=== PATIENT | female | born 1930 | race Caucasian/White ===

== ENCOUNTER → 2016-12-03 16:59 | Outpatient (CLI) | payer MEDICARE ==
[2013-02-17 06:09] VITALS: BMI 20.9
[~2016-12-03 16:59] MED LIST: ATIVAN0.5 MG PO; BAYER ASPIRIN325 MG PO; CALCIUM 600+D T1 TA1 PO; DYAZIDE 37.5/251 CAP PO; FOSAMAX 70 MG T70 MG PO; PRAVACHOL20 MG PO; TOPROL XL50 MG PO; VITAMIN B-121000 MC3 PO; [UNRECOGNIZED DRUG - OTHER] OR
== END | disposition home or self-care (01) ==
LOC: D.MAMMO 11:15
DX: Z12.31 Encounter for screening mammogram for malignant neoplasm of breast (principal)

== ENCOUNTER 2017-04-14 08:39 | Emergency (ER) | payer MEDICARE ==
[2013-02-17 06:09] VITALS: BMI 20.9
[2017-04-14 09:25] LABS: BASOPHILS 0.1 % (0-2); EOSINOPHILS 0 % (0-7); HEMATOCRIT 39.4 % (36.0-48.0); HEMOGLOBIN 12.9 g/dL (12-16); IMMATURE GRANULOCYTES 0.2 % (0-5); LYMPHOCYTES 19.6 % (15-50); MCH 30.1 pg (26.0-34.0); MCHC 32.7 g/dL (31.0-37.0); MCV 91.8 fL (80.0-100.0); MEAN PLATELET VOLUME 8.9 fL (7.4-10.4); NEUTROPHILS 75.1 % (40-80); RBC 4.29 10x6/uL (4.00-5.40); RDW 14.2 % (11.5-14.5); WBC 8.9 10x3/uL (4.8-10.8)
[2017-04-14 09:26] LABS: PLATELET COUNT 262 10x3/uL (130-400)
[2017-04-14 09:26] LABS: APPEARANCE CLEAR (CLEAR); COLOR YELLOW (YELLOW); GLUCOSE NEGATIVE (NEGATIVE); KETONE SMALL mg/dL (NEGATIVE); NITRITE NEGATIVE (NEGATIVE); PROTEIN NEGATIVE (NEGATIVE); SPECIFIC GRAVITY 1.015 (1.005-1.020)
[2017-04-14 09:27] LABS: BILIRUBIN NEGATIVE (NEGATIVE); UROBILINOGEN NORMAL (NORMAL)
[2017-04-14 09:37] LABS: BACTERIA FEW /hpf (NONE SEEN); EPITHELIAL CELLS OCC /hpf (0-5); RED CELLS - URINE 0-5 /hpf (0-5); WHITE CELLS - URINE OCC /hpf (0-5)
[2017-04-14 09:40] LABS: ALBUMIN 4.3 g/dL (3.4-5.0); ANION GAP 15.1 mmol/L (8-16); BILIRUBIN - TOTAL 0.4 mg/dL (0.2-1.3); CALCIUM 9.2 mg/dL (8.5-10.1); CARBON DIOXIDE 24.6 mmol/L (21.0-32.0); CREATININE - SERUM 0.8 mg/dL (0.6-1.3); POTASSIUM - SERUM 3.7 mmol/L (3.5-5.1); PROTEIN - SERUM 7.9 g/dL (6.4-8.2)
[2017-04-14 09:49] LABS: THYROID STIMULATING HORMONE 0.96 uIU/mL (0.36-3.74)
== END 2017-04-14 10:21 | disposition home or self-care (01) ==
LOC: D.ER 08:39
PROVIDERS: Emergency Medicine
DX: F03.90 Unspecified dementia, unspecified severity, without behavioral disturbance, psychotic disturbance, mood disturbance, and anxiety (principal); E87.1 Hypo-osmolality and hyponatremia; I10 Essential (primary) hypertension

== ENCOUNTER 2017-05-25 14:39 | Inpatient (IN) | payer MEDICARE ==
[~2017-05-25] VITALS: Ht 180.3 cm; Wt 64.1 kg
--- NOTE | ~2017-05-25 | EC ---
PATIENT:LIT MURGUIA DATE OF SERVICE: 05/26/17 SEX: F MEDICAL RECORD: [id number] DATE OF : 30 LOCATION:[facility] AGE OF PATIENT: 86 ADMISSION DATE: 05/26/17 REFERRING PHYSICIAN: INTERPRETING PHYSICIAN: KENNEY VALERIO MD ECHOCARDIOGRAM REPORT ECHO CHARGES 5 ECHO LIMITED DATE: CLINICAL DIAGNOSIS: TIA ECHOCARDIOGRAPHIC MEASUREMENTS (adult normal given) AC root (d.<3.7cm) cm LV Septum d (<1.2 cm> 1.6 cm Valve Excursion cm LV Septum (systole) 1.9 cm Left Atria (s.<4.0cm> 3.3 cm LVPW d(<1.2cm) 2.0 cm RV (d.<2.3cm) 2.8 cm LVPW (sytole) 2.2 cm LV diastole(<5.6CM) 3.3 cm MV E-F(>70mm/sec) cm LV systole 2.0 cm LVOT Diameter cm MV exc.(>10mm) cm Est.ejection fraction (50-75%) % DOPPLER: LVIT cm/sec A cm/sec E cm/sec LA cm/sec RVSP 21 mmHg LVOT cm/sec AOP1/2T m/s Asc. Ao cm/sec RVOT cm/sec RA cm/sec PA cm/sec AV Gradient Peak mmHg AV Mean mmHg AV Area cm MV Gradient Peak mmHg MV Mean mmHg MV Area cm COMMENTS: Cost Coordinator: Aracely GODINEZ Foreign Car Mechanic: Zuhair Valerio TAPE# PACS Pericardial Effusion N DATE OF SERVICE: 05/26/2017 PROCEDURE: Echocardiogram. FINDINGS: 1. Left ventricle chamber size is within normal limits. Left ventricular systolic function is normal. Overall ejection fraction estimated at 60%. 2. Left atrium, right atrium, and right ventricular chamber sizes are within normal limits. 3. Valvular structures have normal structure and motion. ECHOCARDIOGRAM REPORT [id number] LIT MURGUIA 4. Doppler interrogation reveals only trace tricuspid regurgitation and trace mitral regurgitation. No other valvular insufficiency or stenosis. 5. No evidence of pericardial effusion or left ventricular thrombus. TRANSINT:[id number] Voice Confirmation ID: [id number] DOCUMENT ID: [id number] KENNEY VALERIO MD at 1140 CC: [id number] DICTATION DATE: 05/27/17 1249 SKIMMER SCOOP OPERATOR: 05/27/17 1259 DIS IN 05/29/17 [facility] [address] [id number]
--- NOTE | ~2017-05-25 | CN ---
PATIENT NAME:LIT MURGUIA MEDICAL RECORD: [id number] : 30 LOCATION:[id number] ADMIT DATE: 05/26/17 ACCOUNT: [id number] CONSULTING PHYSICIAN: MELVIN CAMPBELL MD REFERRING PHYSICIAN: PETRONA SMITH MD DATE OF CONSULTATION: 05/27/2017 PSYCHIATRIC CONSULTATION IDENTIFYING DATA: The patient is 86 years old and she is currently in the hospital secondary to a transient ischemic attack. CHIEF COMPLAINT: Agitation. HISTORY OF PRESENT ILLNESS: The patient clearly has a dementia. Apparently, it has become more exacerbated with this hospitalization and particularly with her hospitalization in the intensive care unit. She has been significantly agitated there. She denies any thoughts of harming herself or others. She is calm when I speak with her, but the nurse caring for her today describes typical sundowning behaviors and/or behaviors consistent with an intensive care unit delirium. In talking with the patient, she does not have any mood symptoms and certainly has no conscious and overt thoughts of harming herself or others or psychotic symptoms. Her mental status exam is consistent with short-term memory loss and a concreteness that is consistent with a dementia. ASSESSMENT: Senile dementia of the Alzheimer's type. PLAN: The patient clearly has impairment and is living with her son for the past 16 years. She wants to go back and live with him. Her behaviors in and of themselves would meet criteria for an inpatient hospitalization here on the geriatric behavior unit, but she does not want to be admitted and given her circumstances I suspect that she would improve just simply by returning home with her son to a familiar setting and environment. I would recommend the use of a cholinesterase inhibitor and I will also prescribe p.r.n. medication in case she becomes agitated while hospitalized here. TRANSINT:[id number] Voice Confirmation ID: [id number] DOCUMENT ID: [id number] MELVIN CAMPBELL MD at 1445 CC: [id number] DICTATION DATE: 05/27/17 1412 MANAGER TRANSPORT: 05/27/17 1420 ADM [id number] [place] [id number]
[2017-05-25 15:07] LABS: BASOPHILS 0.2 % (0-2); EOSINOPHILS 0 % (0-7); HEMATOCRIT 32.8 % (36.0-48.0); HEMOGLOBIN 10.5 g/dL (12-16); IMMATURE GRANULOCYTES 0.6 % (0-5); LYMPHOCYTES 15.2 % (15-50); MCH 29.9 pg (26.0-34.0); MCV 93.4 fL (80.0-100.0); MEAN PLATELET VOLUME 9.3 fL (7.4-10.4); MONOCYTES 4.1 % (2-11); NEUTROPHILS 79.9 % (40-80); PLATELET COUNT 232 10x3/uL (130-400); RBC 3.51 10x6/uL (4.00-5.40); RDW 15.2 % (11.5-14.5); WBC 12.6 10x3/uL (4.8-10.8)
[2017-05-25 15:21] LABS: APTT 23.6 SECONDS (22.8-39.4); INR 1.07 (0.85-1.17); PROTIME 13.5 SECONDS (11.6-15.0)
[2017-05-25 15:29] LABS: ALBUMIN 3.4 g/dL (3.4-5.0); ANION GAP 14.6 mmol/L (8-16); BILIRUBIN - TOTAL 0.47 mg/dL (0.2-1.3); CALCIUM 10.6 mg/dL (8.5-10.1); CARBON DIOXIDE 27.8 mmol/L (21.0-32.0); CREATININE - SERUM 1.2 mg/dL (0.6-1.3); POTASSIUM - SERUM 4.4 mmol/L (3.5-5.1); PROTEIN - SERUM 6.6 g/dL (6.4-8.2)
[2017-05-26] VITALS (21 sets, daily range): BP systolic 97–129; BP diastolic 44–68; BMI 18.7
[2017-05-26 06:45] LABS: BASOPHILS 0.2 % (0-2); EOSINOPHILS 0.2 % (0-7); HEMATOCRIT 28.3 % (36.0-48.0); HEMOGLOBIN 9.2 g/dL (12-16); IMMATURE GRANULOCYTES 0.3 % (0-5); LYMPHOCYTES 28.1 % (15-50); MCH 29.8 pg (26.0-34.0); MCHC 32.5 g/dL (31.0-37.0); MCV 91.6 fL (80.0-100.0); MONOCYTES 9.6 % (2-11); NEUTROPHILS 61.6 % (40-80); PLATELET COUNT 200 10x3/uL (130-400); RBC 3.09 10x6/uL (4.00-5.40); RDW 15.4 % (11.5-14.5); WBC 11.8 10x3/uL (4.8-10.8)
[2017-05-26 06:54] LABS: APTT 25.8 SECONDS (22.8-39.4); INR 1.04 (0.85-1.17); PROTIME 13.2 SECONDS (11.6-15.0)
[2017-05-26 07:01] LABS: ANION GAP 12.8 mmol/L (8-16); CALCIUM 9.9 mg/dL (8.5-10.1); CARBON DIOXIDE 27.6 mmol/L (21.0-32.0); CREATININE - SERUM 1.1 mg/dL (0.6-1.3); POTASSIUM - SERUM 4.4 mmol/L (3.5-5.1)
[2017-05-26] MEDS ORDERED: ATIVAN0.5 MG PO ×3 (12:15→12:17)
[2017-05-26] MEDS ORDERED: PRINIVIL10 MG PO (12:19)
[2017-05-26 12:20] LABS: HEMATOCRIT 25.9 % (36.0-48.0); HEMOGLOBIN 8.4 g/dL (12-16)
[2017-05-26] MEDS ORDERED: MOBIC7.5 MG PO (12:20)
[2017-05-26] MEDS ORDERED: OMEGA 3 FISH OI1 CAP PO (12:22)
[2017-05-26] MEDS ORDERED: PROLIA INJ 660 MG/M1 IJ (12:23)
[2017-05-26] MEDS ORDERED: ACETAMINOP160 MG/5 M PO (12:42)
[2017-05-26 15:21] LABS: HELICOBACTER PYLORI IGG NEGATIVE (NEGATIVE)
[2017-05-26 17:59] LABS: HEMATOCRIT 27.9 % (36.0-48.0)
[2017-05-27] VITALS (22 sets, daily range): BP systolic 101–155; BP diastolic 43–96; Ht 180.3 cm; Wt 64.1 kg
[2017-05-27 01:23] LABS: HEMOGLOBIN 7.1 g/dL (12-16)
[2017-05-27 20:28] LABS: HEMATOCRIT 31.1 % (36.0-48.0); HEMOGLOBIN 10.3 g/dL (12-16)
[2017-05-28] VITALS (14 sets, daily range): BP systolic 118–173; BP diastolic 57–110
[2017-05-28 01:05] LABS: HEMATOCRIT 31.9 % (36.0-48.0); HEMOGLOBIN 10.7 g/dL (12-16)
[2017-05-28 05:07] LABS: BASOPHILS 0.2 % (0-2); EOSINOPHILS 0.1 % (0-7); HEMATOCRIT 32.4 % (36.0-48.0); HEMOGLOBIN 10.7 g/dL (12-16); IMMATURE GRANULOCYTES 0.8 % (0-5); LYMPHOCYTES 21.1 % (15-50); MCH 29.9 pg (26.0-34.0); MCV 90.5 fL (80.0-100.0); MEAN PLATELET VOLUME 9.3 fL (7.4-10.4); MONOCYTES 9.1 % (2-11); NEUTROPHILS 68.7 % (40-80); PLATELET COUNT 173 10x3/uL (130-400); RBC 3.58 10x6/uL (4.00-5.40); RDW 15.9 % (11.5-14.5); WBC 10.4 10x3/uL (4.8-10.8)
[2017-05-28 07:15] LABS: ALBUMIN 3.5 g/dL (3.4-5.0); ANION GAP 14.6 mmol/L (8-16); BILIRUBIN - TOTAL 0.8 mg/dL (0.2-1.3); CALCIUM 8.1 mg/dL (8.5-10.1); CREATININE - SERUM 0.8 mg/dL (0.6-1.3); POTASSIUM - SERUM 3.6 mmol/L (3.5-5.1); PROTEIN - SERUM 6.4 g/dL (6.4-8.2); THYROID STIMULATING HORMONE 1.43 uIU/mL (0.36-3.74)
[2017-05-28 07:16] LABS: PHOSPHOROUS 1.1 mg/dL (2.5-4.9)
[2017-05-28 14:24] LABS: HEMOGLOBIN 10.9 g/dL (12-16)
[2017-05-28 19:10] LABS: HEMATOCRIT 29.7 % (36.0-48.0); HEMOGLOBIN 9.9 g/dL (12-16)
[2017-05-29 01:00] VITALS: BP 92/47
[2017-05-29 01:08] LABS: APPEARANCE CLEAR (CLEAR); BILIRUBIN NEGATIVE (NEGATIVE); COLOR YELLOW (YELLOW); GLUCOSE NEGATIVE (NEGATIVE); KETONE NEGATIVE (NEGATIVE); NITRITE NEGATIVE (NEGATIVE); PROTEIN NEGATIVE (NEGATIVE); SPECIFIC GRAVITY 1.005 (1.005-1.020); UROBILINOGEN NORMAL (NORMAL)
[2017-05-29 01:09] LABS: BACTERIA NONE SEEN /hpf (NONE SEEN); EPITHELIAL CELLS NSEEN /hpf (0-5); RED CELLS - URINE 0-5 /hpf (0-5); WHITE CELLS - URINE NSEEN /hpf (0-5)
[2017-05-29 03:00] VITALS: BP 141/68
[2017-05-29 04:36] LABS: BASOPHILS 0.2 % (0-2); EOSINOPHILS 0.3 % (0-7); HEMOGLOBIN 11.6 g/dL (12-16); IMMATURE GRANULOCYTES 0.4 % (0-5); MCH 29.9 pg (26.0-34.0); MCHC 33.1 g/dL (31.0-37.0); MCV 90.2 fL (80.0-100.0); MEAN PLATELET VOLUME 9.1 fL (7.4-10.4); MONOCYTES 9.5 % (2-11); NEUTROPHILS 71.6 % (40-80); PLATELET COUNT 201 10x3/uL (130-400); RBC 3.88 10x6/uL (4.00-5.40); WBC 11.2 10x3/uL (4.8-10.8)
[2017-05-29 04:46] LABS: ANION GAP 17.1 mmol/L (8-16); CALCIUM 8.1 mg/dL (8.5-10.1); CARBON DIOXIDE 21.9 mmol/L (21.0-32.0); CREATININE - SERUM 0.8 mg/dL (0.6-1.3)
[2017-05-29 05:00] VITALS: BP 103/87
[2017-05-29 07:00] VITALS: BP 179/40
[2017-05-29] MEDS ORDERED: CARAFATE1 G/10 ML PO (09:22)
[2017-05-29] MEDS ORDERED: PROTONIX40 MG PO (09:25)
[2017-05-29] MEDS ORDERED: PEPCID40 MG PO (09:26)
[2017-05-29 11:00] VITALS: BP 135/85
== END 2017-05-29 12:19 | disposition home health service (06) | DRG 378 ==
LOC: D.ER 14:39 → D.EDHOLD 18:36 → D.CVICU 18:36 → OBSVTIME 18:36 → D.EDHOLD 18:36 → D.CVICU 18:37 → D.ICU 05-26 18:27 → D.CVICU 05-26 18:27 → D.ICU 05-27 05:57
PROVIDERS: Family Medicine; Family Medicine Adult Medicine; Internal Medicine Gastroenterology; Internal Medicine Nephrology
PROC: 05HC33Z Insertion of Infusion Device into Left Basilic Vein, Percutaneous Approach (ICD-10-PCS; principal; 2017-05-27)
PROC: B54NZZA Ultrasonography of Left Upper Extremity Veins, Guidance (ICD-10-PCS; 2017-05-27)
DX: K92.2 Gastrointestinal hemorrhage, unspecified (principal); G45.9 Transient cerebral ischemic attack, unspecified; D62 Acute posthemorrhagic anemia; F05 Delirium due to known physiological condition; R29.700 NIHSS score 0; G30.1 Alzheimer's disease with late onset; F02.80 Dementia in other diseases classified elsewhere, unspecified severity, without behavioral disturbance, psychotic disturbance, mood disturbance, and anxiety; K21.9 Gastro-esophageal reflux disease without esophagitis; I10 Essential (primary) hypertension; H91.8X3 Other specified hearing loss, bilateral; Z78.1 Physical restraint status; I95.9 Hypotension, unspecified

== ENCOUNTER → 2017-06-20 09:38 | Outpatient (CLI) | payer MEDICARE ==
[2017-05-27 10:24] VITALS: BMI 18.7
[~2017-06-20 09:38] MED LIST changes: +ACETAMINOP160 MG/5 M PO; +CARAFATE1 G/10 ML PO; +MOBIC7.5 MG PO; +OMEGA 3 FISH OI1 CAP PO; +PEPCID40 MG PO; +PRINIVIL10 MG PO; +PROLIA INJ 660 MG/M1 IJ; +PROTONIX40 MG PO
[2017-06-20 09:59] LABS: BASOPHILS 0.3 % (0-2); EOSINOPHILS 0.5 % (0-7); HEMATOCRIT 40.8 % (36.0-48.0); HEMOGLOBIN 13.2 g/dL (12-16); IMMATURE GRANULOCYTES 0.3 % (0-5); MCH 30.6 pg (26.0-34.0); MCHC 32.4 g/dL (31.0-37.0); MCV 94.4 fL (80.0-100.0); MEAN PLATELET VOLUME 8.9 fL (7.4-10.4); MONOCYTES 7.4 % (2-11); NEUTROPHILS 62.5 % (40-80); PLATELET COUNT 220 10x3/uL (130-400); RBC 4.32 10x6/uL (4.00-5.40)
== END | disposition home or self-care (01) ==
LOC: D.LAB 06-18 09:00
PROVIDERS: Internal Medicine Gastroenterology
DX: D64.9 Anemia, unspecified (principal)